=== PATIENT | male | born 2000 | race Hispanic/Latino ===

== ENCOUNTER 2025-09-07 12:32 | Emergency (ER) | payer OTHER ==
[~2025-09-07 12:32] MED LIST: Iopamidol 370 76% 100 ML VIAL ONE
[2025-09-07 13:43] LABS: #Basophils Less than 0.03 10x3/uL (0.0-0.2); #Eosinophils 0.06 10x3/uL (0.0-0.5); #Monocytes 0.25 10x3/uL (0.0-1.1); #Neutrophils 3.40 10x3/uL (1.5-8.4); %Basophils 0.4 % (0.0-2.0); %Eosinophils 1.1 % (0.0-6.0); %Lymphocytes 28.4 % (18.0-47.0); %Monocytes 4.8 % (0.0-10.0); %Neutrophils 65.1 % (40.0-75.0); Hematocrit 43.3 % (38.8-50.0); Hemoglobin 14.8 g/dL (13.5-17.5); Mean Corpuscular Hemoglobin 28.8 pg (27.0-33.0); Mean Corpuscular Volume 84.4 fL (81.2-95.1); Platelet Count 192 10x3/uL (150-450); Red Blood Cell (RBC) Count 5.13 10x6/uL (4.32-5.72); White Blood Cell (WBC) Count 5.22 10x3/uL (3.5-10.5)
[2025-09-07 13:58] LABS: ALT (SGPT) 116 U/L (Less than 45); AST (SGOT) 308 U/L (11-34); Albumin 3.9 g/dL (3.1-4.5); Alkaline Phosphatase 62 U/L (40-110); Anion Gap 12 mmol/L (10-20); BUN (Urea Nitrogen) 14 mg/dL (8.9-20.6); Bilirubin, Total 0.7 mg/dL (0.3-1.2); Calc. Creatinine Clearance 0 mL/min (70-130); Calcium 9.2 mg/dL (7.8-10.44); Carbon Dioxide 25 mmol/L (22-29); Chloride 106 mmol/L (98-107); Globulin 2.8 g/dL (2.4-3.5); Glucose 106 mg/dL (70-105); Magnesium 2.0 mg/dL (1.6-2.6); Potassium 4.4 mmol/L (3.5-5.1); Sodium 139 mmol/L (136-145)
[2025-09-07 14:34] LABS: INR-International Normal Ratio 1.2; PTT 23.4 sec (22.0-33.0); Prothrombin Time 12.1 sec (9.5-12.1)
[2025-09-07 17:53] LABS: Hep A IgM AB NONREACTIVE (NonReactive); Hep A IgM S/CO 0.17 S/CO (0-0.79); Hep B Core IgM Index 0.08 S/CO (0-0.79); Hep B Surf Ag NONREACTIVE S/CO (NonReactive); Hep C IgG Ab NONREACTIVE S/CO (NonReactive); Hep C Index 0.05 S/CO (0-0.79)
== END 2025-09-07 17:46 | disposition home or self-care (01) ==
LOC: CSHERS 12:32
DX: M62.82 Rhabdomyolysis (principal); N50.89 Other specified disorders of the male genital organs; R19.00 Intra-abdominal and pelvic swelling, mass and lump, unspecified site
CPT/HCPCS: 74177; 80053; 80074; 82550; 83735; 85025; 85610; 85730; 96360; Q9967